=== PATIENT | female | born 1965 | race African-American/Black ===

== ENCOUNTER 2017-12-10 07:45 | Day surgery (SDC) | payer OTHER ==
[2017-11-21 11:42] VITALS: BMI 48.0
[2017-12-10] MEDS ORDERED: MIDAZOLAM HCL 2 MG/2 ML SINGLE DOSE VIAL ONE ×2 (09:37)
[2017-12-10] MEDS ORDERED: PROPOFOL 20 ML ONE (09:58)
--- NOTE | 2017-12-10 10:34 | OP ---
Operative Note - Note: Operative Date: 12/10/17 Pre-Operative Diagnosis: Left Kidney stones Operation: Left ESWL Findings: 5 & 3 mm mid pole left kidney stone Post-Operative Diagnosis: Same as Pre-op Surgeon: Daryl Tafoya
[2017-12-10 11:11] VITALS: TEMP 98.4
[2017-12-10 11:28] VITALS: PULSE 88
[2017-12-10 12:54] VITALS: BP 140/90
--- NOTE | 2017-12-10 19:53 | OP ---
DATE OF OPERATION: 12/10/2017 PREOPERATIVE DIAGNOSIS: Left renal stones. POSTOPERATIVE DIAGNOSIS: Left renal stones. PROCEDURE: Left extracorporeal shock wave lithotripsy. ATTENDING: Roseanna Chester MD ANESTHESIA: Fractional. DESCRIPTION OF OPERATION: The patient was brought in the operating room, placed in supine position on the operating room table. Ultrasonography and fluoroscopy were performed. Two stones in the left mid-pole were identified. One measured 5 mm, and the other measured 3 mm. Fractional anesthesia and preoperative antibiotics were then administered. At this point, 2500 impulses at 20 joules of power were administered to the 5-mm stone with excellent fragmentation noted. There were no complications noted. The patient tolerated the procedure very well. ROSEANNA CHESTER M.D. [id number]
== END 2017-12-10 12:54 | disposition home or self-care (01) ==
LOC: JASU-SURG 07:45
PROVIDERS: ATTEND Urology
PROC: 0TF4XZZ Fragmentation in Left Kidney Pelvis, External Approach (ICD-10-PCS; principal; 2017-12-10 09:30)
DX: N20.0 Calculus of kidney (principal)
CPT/HCPCS: 94760

== ENCOUNTER 2019-08-15 11:59 | Day surgery (SDC) | payer OTHER ==
[2019-08-13 14:41] VITALS: BMI 51.7
[2019-08-15] MEDS ORDERED: LIDOCAINE HCL 1%, 10 MG/ML (20ML VIAL) NR ONE (15:23)
[2019-08-15] MEDS ORDERED: IOHEXOL 180 MG/1 ML ML IJ ONE (15:23)
[2019-08-15] MEDS ORDERED: BUPIVACAINE HCL/PF 0.5% (5 MG/ML) 30 ML VIAL IJ ONE (15:23)
[2019-08-15] MEDS ORDERED: LIDOCAINE HCL/PF 1% SDV 5ML VIAL ONE (15:34)
[2019-08-15] MEDS ORDERED: MIDAZOLAM HCL 2 MG/2 ML SINGLE DOSE VIAL ONE (15:35)
[2019-08-15 18:38] VITALS: BP 140/72; PULSE 91; TEMP 98
== END 2019-08-15 17:30 | disposition home or self-care (01) ==
LOC: JASU-SURG 11:59
PROVIDERS: ATTEND Pain Medicine Pain Medicine
PROC: 3E0R33Z Introduction of Anti-inflammatory into Spinal Canal, Percutaneous Approach (ICD-10-PCS; 2019-08-15)
PROC: 3E0R3BZ Introduction of Anesthetic Agent into Spinal Canal, Percutaneous Approach (ICD-10-PCS; principal; 2019-08-15 15:00)
DX: M54.16 Radiculopathy, lumbar region (principal); M54.5 Low back pain

== ENCOUNTER 2024-07-15 04:56 | Inpatient (IN) | payer OTHER ==
[2024-07-15] MEDS ORDERED: ALBUTEROL SO4 2.5/IPRATROPIUM 0.5 INH SOL 3 ML VIAL.NEB. NEB ONE (05:20)
[2024-07-15] MEDS ORDERED: LEVALBUTEROL HCL 0.63 MG/3 ML VIAL.NEB. IH ONE (05:24)
[2024-07-15] MEDS: ALBUTEROL SO4 2.5/IPRATROPIUM 0.5 INH SOL 3 ML VIAL.NEB. NEB SCH (05:30)
[2024-07-15] MEDS ORDERED: DEXAMETHASONE SOD PHOSPHATE 10 MG/1 ML VIAL ONE (05:42)
[2024-07-15 06:27] LABS: VENOUS BASE EXCESS 5.2 mmol/L (-2-2); VENOUS O2 SATURATION 20.4 % (70-80); VENOUS PH 7.274 (7.310-7.410)
[2024-07-15] MEDS ORDERED: LABETALOL HCL 20 MG/4 ML VIAL ONE (06:31)
[2024-07-15 06:39] LABS: VENOUS PCO2 78.4 mmHg (38-52)
[2024-07-15 06:44] LABS: INR 1.08 (0.83-1.09); PROTHROMBIN TIME (PATIENT) 12.2 SEC (9.7-13.0)
[2024-07-15 06:46] LABS: ACTIVATED PTT 35.2 SECONDS (25.2-36.5)
[2024-07-15 06:48] LABS: POTASSIUM 4.7 mmol/L (3.5-5.1)
[2024-07-15 06:50] LABS: ALBUMIN 3.6 g/dl (3.4-5.0); BLOOD UREA NITROGEN 15.7 mg/dL (7-18); CALCIUM 10.1 mg/dL (8.5-10.1)
[2024-07-15 06:53] LABS: CREATININE 0.9 mg/dL (0.55-1.3)
[2024-07-15 06:55] LABS: BILIRUBIN,TOTAL 0.4 mg/dL (0.2-1); TOT PROT 8.7 g/dl (6.4-8.2)
[2024-07-15 06:58] LABS: N-TERMINAL BNP 153.5 pg/ml (5-125)
[2024-07-15] MEDS: DEXAMETHASONE SOD PHOSPHATE 10 MG/1 ML VIAL IM ONE (06:58)
[2024-07-15] MEDS: LABETALOL HCL 20 MG/4 ML VIAL IVPUSH ONE (06:59)
[2024-07-15] MEDS: LEVALBUTEROL HCL 0.63 MG/3 ML VIAL.NEB. IH ONE (06:59)
[2024-07-15 07:00] LABS: HEMATOCRIT 50.8 % (32.4-45.2); HEMOGLOBIN 15.5 GM/dL (10.7-15.3); MCH 26.4 pg (25.7-33.7); MCHC 30.4 g/dl (32.0-36.0); MEAN CELL VOLUME 86.6 fl (80-96); MEAN PLT VOLUME 10.7 fl (7.5-11.1); PLATELET COUNT 159 10^3/uL (134-434); RBC 5.86 M/mm3 (3.60-5.2); RDW 16.8 % (11.6-15.6); WHITE BLOOD COUNT 15.1 K/mm3 (4.0-10.0)
[2024-07-15 07:03] LABS: LACTIC ACID 2.4 mmol/L (0.4-2.0)
[2024-07-15] MEDS ORDERED: dilTIAZem HCL 125 MG/25 ML - 25 ML VIAL ONE ×2 (07:12→07:27)
[2024-07-15] MEDS: dilTIAZem HCL 50 MG/10 ML - 10 ML VIAL IVPUSH ONE ×3 (07:19→07:38)
[2024-07-15] MEDS ORDERED: LEVALBUTEROL HCL 0.63 MG/3 ML VIAL.NEB. IH PRN ×2 (07:22→12:50)
[2024-07-15] MEDS ORDERED: MORPHINE SULFATE 2 MG/ML SYRINGE ONE (07:26)
[2024-07-15] MEDS ORDERED: morphine SULFATE 4 MG/ML VIAL ONE (07:26)
[2024-07-15] MEDS: morphine CARPU-JECT 4 MG/1 ML DISP.SYRIN IVPUSH ONE ×2 (07:38→08:53)
[2024-07-15] MEDS: methylPREDNISolone NA SUCC 125 MG/2 ML VIAL IVPB ONE (07:39)
[2024-07-15] MEDS ORDERED: IPRATROPIUM BR 0.02% 0.5 MG/2.5 ML VIAL.NEB. NEB ONE (07:40)
[2024-07-15] MEDS: IPRATROPIUM BR 0.02% 0.5 MG/2.5 ML VIAL.NEB. NEB ONE (07:40)
[2024-07-15] MEDS ORDERED: LORazepam 2 MG/ML SDV VIAL ONE ×2 (08:08→09:40)
[2024-07-15] MEDS ORDERED: FUROSEMIDE 40 MG/4 ML INJECTABLE VIAL ONE ×2 (08:09→20:51)
[2024-07-15] MEDS: LORazepam 2 MG/ML SDV VIAL IVPUSH ONE ×2 (08:12→09:44)
[2024-07-15] MEDS: FUROSEMIDE 40 MG/4 ML INJECTABLE VIAL IVPUSH ONE ×2 (08:12→20:55)
[2024-07-15] MEDS ORDERED: LIDOCAINE 5% TOPICAL PATCH ONE (08:59)
[2024-07-15] MEDS ORDERED: KETOROLAC TROMETHAMINE 15 MG/ML VIAL ONE (09:00)
[2024-07-15] MEDS: KETOROLAC TROMETHAMINE 15 MG/ML VIAL IVPUSH ONE (09:27)
[2024-07-15] MEDS: LIDOCAINE 5% TOPICAL PATCH TP ONE (09:29)
[2024-07-15 09:40] LABS: ANISOCYTOSIS 0; HELMET CELLS 0; HOWELL-JOLLY BODIES 0; MACROCYTOSIS 0; OVALOCYTE 0; ROULEAU 0; SICKELED CELLS 0; TARGET CELLS 0; TEAR DROP CELLS 0; TOXIC GRANULATION 0
[2024-07-15] MEDS: MUPIROCIN 2% TOPICAL OINTMENT FOR DECOLONIZATION NS SCH (11:00)
[2024-07-15] MEDS: AMIODARONE IN DEXTROSE,ISO-OSM 150 MG/100 ML BAG IVPB SCH (12:20)
[2024-07-15] MEDS: AMIODARONE IN DEXTROSE,ISO-OSM 360 MG/200 ML BAG IV SCH (13:25)
[2024-07-15] MEDS: METHIMAZOLE 5 MG TABLET PO ONE (13:30)
[2024-07-15] MEDS ORDERED: ACETAMINOPHEN 325 MG TABLET (FP) PO PRN (13:45)
[2024-07-15] MEDS: LOSARTAN POTASSIUM 50 MG TABLET PO ONE (14:21)
[2024-07-15] MEDS: OSELTAMIVIR PHOSPHATE 75 MG CAPSULE PO SCH (14:21)
[2024-07-15] MEDS: morphine SULFATE 4 MG/ML VIAL IVPUSH ONE (14:25)
[2024-07-15] MEDS: FUROSEMIDE 40 MG/4 ML INJECTABLE VIAL IVPUSH SCH (14:27)
[2024-07-15] MEDS ORDERED: METOPROLOL TARTRATE 5 MG/5 ML VIAL ONE (14:58)
[2024-07-15] MEDS: oxyCODONE HCL 5 MG TABLET PO PRN (15:55)
[2024-07-15] MEDS: METOPROLOL TARTRATE 5 MG/5 ML VIAL IVPUSH ONE (16:01)
[2024-07-15] MEDS: DEXMEDETOMIDINE PREMIX 400 MCG/100 ML BAG IVPB SCH (16:13)
[2024-07-15] MEDS: NICOTINE 21 MG/24 HOURS TOPICAL PATCH TD SCH (20:08)
[2024-07-15] MEDS: APIXABAN 5 MG TABLET PO SCH (21:13)
[2024-07-15] MEDS: BUDESONIDE/FORMETEROL FUMARATE 160/4.5 mcg INHALER IH SCH (21:21)
[2024-07-15] MEDS: ZIPRASIDONE PO SCH (21:21)
[2024-07-15] MEDS ORDERED: ZIPRASIDONE 80 MG CAPSULE PO SCH (22:00)
[2024-07-15] MEDS: CHLORHEXIDINE GLUCONATE 4% CLEANSER FOR DECOLONIZATION TP SCH (23:12)
[2024-07-16] MEDS ORDERED: morphine SULFATE 4 MG/ML VIAL ONE (01:47)
[2024-07-16] MEDS: morphine SULFATE 4 MG/ML VIAL IVPUSH ONE ×2 (01:58→19:55)
[2024-07-16] MEDS: methylPREDNISolone NA SUCC 40 MG/1 ML VIAL IVPUSH SCH (05:35)
[2024-07-16] MEDS ORDERED: dilTIAZem HCL 25 MG/5 ML - 5 ML VIAL ONE (07:50)
[2024-07-16] MEDS ORDERED: LOSARTAN 50MG/HCTZ 12.5MG 1 TAB PO SCH (10:00)
[2024-07-16] MEDS ORDERED: ENOXAPARIN NA (PORCINE) 40 MG/0.4 ML DISP.SYRIN SQ SCH (10:00)
[2024-07-16] MEDS: METHIMAZOLE 5 MG TABLET PO SCH (11:01)
[2024-07-16 12:16] LABS: ARTERIAL BLD GAS O2 SATURATION 99.3 % (95-98); ARTERIAL BLOOD GAS BASE EXCESS 0.9 mmol/L (-2-2); ARTERIAL BLOOD GAS PO2 229.1 mmHg (80-100); ARTERIAL BLOOD GAS pH 7.241 (7.350-7.450)
[2024-07-16 12:17] LABS: ALLENS TEST POSITIVE
[2024-07-16 12:18] LABS: VENT MODE IPAP 15; VENT RATE 16
[2024-07-16] MEDS: LOSARTAN POTASSIUM 50 MG TABLET PO SCH (13:10)
[2024-07-16 13:21] LABS: HEMATOCRIT 46.4 % (32.4-45.2); HEMOGLOBIN 13.7 GM/dL (10.7-15.3); MCH 26.3 pg (25.7-33.7); MCHC 29.4 g/dl (32.0-36.0); MEAN CELL VOLUME 89.5 fl (80-96); MEAN PLT VOLUME 10.3 fl (7.5-11.1); PLATELET COUNT 134 10^3/uL (134-434); RBC 5.19 M/mm3 (3.60-5.2); RDW 16.6 % (11.6-15.6); WHITE BLOOD COUNT 14.9 K/mm3 (4.0-10.0)
[2024-07-16 13:54] LABS: POTASSIUM 5.6 mmol/L (3.5-5.1)
[2024-07-16 13:56] LABS: CALCIUM 8.6 mg/dL (8.5-10.1)
[2024-07-16 13:57] LABS: BLOOD UREA NITROGEN 37.6 mg/dL (7-18); MAGNESIUM 2.1 mg/dL (1.8-2.4)
[2024-07-16 14:00] LABS: CREATININE 2.3 mg/dL (0.55-1.3); PHOSPHOROUS 6.5 mg/dL (2.5-4.9)
[2024-07-16 14:01] LABS: BILIRUBIN,TOTAL 0.4 mg/dL (0.2-1); TOT PROT 6.8 g/dl (6.4-8.2)
[2024-07-16 14:08] LABS: ALBUMIN 2.7 g/dl (3.4-5.0)
[2024-07-16] MEDS: ENOXAPARIN NA (PORCINE) 60 MG/0.6 ML DISP.SYRIN SQ SCH (14:27)
[2024-07-16] MEDS: LEVALBUTEROL HCL 0.63 MG/3 ML VIAL.NEB. IH SCH (14:29)
[2024-07-16] MEDS: DEXTROSE 50%-WATER 25 GM/50 ML DISP.SYRIN IVPUSH ONE (15:55)
[2024-07-16] MEDS: INSULIN REGULAR HUMAN 100 UNITS/ML *VIAL IVPUSH ONE (15:55)
[2024-07-16] MEDS: CALCIUM GLUCONATE 10% - 1,000 MG/10 ML VIAL IVPUSH ONE (15:55)
[2024-07-16] MEDS: SODIUM CHLORIDE 1,000 ML IV SCH (17:53)
[2024-07-16] MEDS: ACETAMINOPHEN 1000 MG/100 ML BAG IVPB ONE (19:56)
[2024-07-16] MEDS: AMIODARONE IN DEXTROSE,ISO-OSM 360 MG/200 ML BAG IV SCH (22:22)
[2024-07-16 22:53] LABS: ARTERIAL BLD GAS O2 SATURATION 96.7 % (95-98); ARTERIAL BLOOD GAS BASE EXCESS -1.5 mmol/L (-2-2); ARTERIAL BLOOD GAS PO2 111.6 mmHg (80-100)
[2024-07-16 22:55] LABS: ARTERIAL BLOOD GAS pH 7.175 (7.350-7.450)
[2024-07-17] MEDS ORDERED: PHENYLEPHRINE HCL 10 MG/1 ML SINGLE DOSE VIAL ONE (00:31)
[2024-07-17] MEDS: PHENYLEPHRINE NS PREMIX 50,000 MCG/500 ML BAG CVP SCH (00:39)
[2024-07-17 01:11] LABS: ARTERIAL BLD GAS O2 SATURATION 92.4 % (95-98); ARTERIAL BLOOD GAS PO2 85.2 mmHg (80-100)
[2024-07-17 01:13] LABS: ARTERIAL BLOOD GAS pH 7.129 (7.350-7.450)
[2024-07-17 06:17] LABS: ARTERIAL BLD GAS O2 SATURATION 98.3 % (95-98); ARTERIAL BLOOD GAS BASE EXCESS -3.9 mmol/L (-2-2); ARTERIAL BLOOD GAS PO2 145.5 mmHg (80-100)
[2024-07-17 06:26] LABS: ARTERIAL BLOOD GAS pH 7.196 (7.350-7.450)
[2024-07-17 06:27] LABS: VENT MODE S/T; VENT RATE 20
[2024-07-17] MEDS: MIDAZOLAM HCL 5 MG/1 ML Single Dose Vial IVPUSH ONE (08:25)
[2024-07-17] MEDS ORDERED: MIDAZOLAM HCL 5 MG/1 ML Single Dose Vial ONE (08:26)
[2024-07-17] MEDS ORDERED: morphine SULFATE 4 MG/ML VIAL ONE (11:15)
[2024-07-17] MEDS: morphine SULFATE 4 MG/ML VIAL IVPUSH ONE (12:45)
[2024-07-17 15:28] VITALS: BMI 59.3
[2024-07-17 16:13] LABS: ARTERIAL BLD GAS O2 SATURATION 94.4 % (95-98); ARTERIAL BLOOD GAS BASE EXCESS -3.9 mmol/L (-2-2); ARTERIAL BLOOD GAS PO2 88.7 mmHg (80-100)
[2024-07-17 16:19] LABS: VENT MODE S/T; VENT RATE 24
[2024-07-17 16:20] LABS: ARTERIAL BLOOD GAS pH 7.196 (7.350-7.450)
[2024-07-17 17:33] LABS: HEMATOCRIT 45.3 % (32.4-45.2); HEMOGLOBIN 13.8 GM/dL (10.7-15.3); MCH 26.7 pg (25.7-33.7); MCHC 30.5 g/dl (32.0-36.0); MEAN CELL VOLUME 87.3 fl (80-96); MEAN PLT VOLUME 10.6 fl (7.5-11.1); PLATELET COUNT 121 10^3/uL (134-434); RBC 5.19 M/mm3 (3.60-5.2); RDW 16.2 % (11.6-15.6); WHITE BLOOD COUNT 13.4 K/mm3 (4.0-10.0)
[2024-07-17 17:54] LABS: POTASSIUM 5.8 mmol/L (3.5-5.1)
[2024-07-17 17:57] LABS: CALCIUM 7.8 mg/dL (8.5-10.1)
[2024-07-17 17:58] LABS: ALBUMIN 2.3 g/dl (3.4-5.0); MAGNESIUM 2.2 mg/dL (1.8-2.4)
[2024-07-17 18:01] LABS: CREATININE 4.1 mg/dL (0.55-1.3); PHOSPHOROUS 8.2 mg/dL (2.5-4.9)
[2024-07-17 18:02] LABS: BILIRUBIN,TOTAL 0.4 mg/dL (0.2-1)
[2024-07-17 18:04] LABS: BLOOD UREA NITROGEN 78.7 mg/dL (7-18)
[2024-07-17] MEDS: SODIUM ZIRCONIUM CYCLOSILICATE (LOKELMA) 5 GM PACKET PO ONE (18:40)
[2024-07-17] MEDS ORDERED: DEXTROSE 50%-WATER 25 GM/50 ML DISP.SYRIN ONE (18:48)
[2024-07-17] MEDS: INSULIN REGULAR HUMAN 100 UNITS/ML *VIAL IVPUSH ONE (19:10)
[2024-07-17] MEDS: CALCIUM GLUCONATE 10% - 1,000 MG/10 ML VIAL IVPUSH ONE (19:10)
[2024-07-17] MEDS: DEXTROSE 50%-WATER - 25 GM/50 ML VIAL IVPUSH ONE (19:32)
[2024-07-17] MEDS ORDERED: LIDOCAINE HCL 1%, 10 MG/ML (20ML VIAL) ONE (20:56)
[2024-07-17] MEDS: DEXMEDETOMIDINE IN 0.9 % NACL 200 MCG/50 ML EACH IVPB SCH (22:00)
[2024-07-17 23:45] LABS: ARTERIAL BLD GAS O2 SATURATION 95.3 % (95-98); ARTERIAL BLOOD GAS BASE EXCESS -3.6 mmol/L (-2-2); ARTERIAL BLOOD GAS PO2 91.4 mmHg (80-100); ARTERIAL BLOOD GAS pH 7.224 (7.350-7.450)
[2024-07-18] MEDS: ENOXAPARIN NA (PORCINE) 60 MG/0.6 ML DISP.SYRIN SQ SCH (00:11)
[2024-07-18] MEDS: morphine SULFATE 4 MG/ML VIAL IVPUSH PRN (03:29)
[2024-07-18] MEDS ORDERED: RAPID SEQUENCE INTUBATION KIT NR ONE ×2 (05:42→09:25)
[2024-07-18] MEDS: PHENobarbital SODIUM 65 MG/1 ML VIAL IVPUSH ONE (06:37)
[2024-07-18 06:58] LABS: HEMATOCRIT 45.9 % (32.4-45.2); HEMOGLOBIN 14.5 GM/dL (10.7-15.3); MCHC 31.6 g/dl (32.0-36.0); MEAN CELL VOLUME 85.4 fl (80-96); MEAN PLT VOLUME 10.7 fl (7.5-11.1); PLATELET COUNT 141 10^3/uL (134-434); RBC 5.38 M/mm3 (3.60-5.2); RDW 16.4 % (11.6-15.6); WHITE BLOOD COUNT 26.1 K/mm3 (4.0-10.0)
[2024-07-18 07:14] LABS: POTASSIUM 5.8 mmol/L (3.5-5.1)
[2024-07-18 07:17] LABS: ALBUMIN 2.5 g/dl (3.4-5.0); BLOOD UREA NITROGEN 92.6 mg/dL (7-18); CALCIUM 8.3 mg/dL (8.5-10.1)
[2024-07-18 07:18] LABS: MAGNESIUM 2.3 mg/dL (1.8-2.4)
[2024-07-18 07:20] LABS: CREATININE 4.5 mg/dL (0.55-1.3); PHOSPHOROUS 8.1 mg/dL (2.5-4.9)
[2024-07-18 07:21] LABS: BILIRUBIN,TOTAL 0.7 mg/dL (0.2-1); TOT PROT 6.5 g/dl (6.4-8.2)
[2024-07-18 07:26] LABS: ARTERIAL BLD GAS O2 SATURATION 91.8 % (95-98); ARTERIAL BLOOD GAS BASE EXCESS -4.9 mmol/L (-2-2); ARTERIAL BLOOD GAS PO2 75.3 mmHg (80-100); ARTERIAL BLOOD GAS pH 7.211 (7.350-7.450)
[2024-07-18 07:29] LABS: VENT MODE S/T; VENT RATE 24
[2024-07-18] MEDS: ACETAMINOPHEN 1000 MG/100 ML BAG IVPB PRN (09:10)
[2024-07-18] MEDS ORDERED: PROPOFOL 1,000,000 MCG/100 ML VIAL ONE (09:25)
[2024-07-18] MEDS ORDERED: MIDAZOLAM HCL 5 MG/1 ML Single Dose Vial ONE (09:36)
[2024-07-18] MEDS: KETAMINE HCL 200 MG/20 ML VIAL IVPUSH ONE (12:19)
[2024-07-18] MEDS: DEXMEDETOMIDINE HCL 400 MCG in SODIUM CHLORIDE 96 ML IVPB SCH (12:20)
[2024-07-18] MEDS: NOREPINEPHRINE 0.9 % NACL 8 MG/250 ML BAG IVPB SCH (12:21)
[2024-07-18 12:32] LABS: HEMATOCRIT 47.7 % (32.4-45.2); HEMOGLOBIN 14.8 GM/dL (10.7-15.3); MCH 26.6 pg (25.7-33.7); MCHC 30.9 g/dl (32.0-36.0); PLATELET COUNT 161 10^3/uL (134-434); RBC 5.55 M/mm3 (3.60-5.2); RDW 17.3 % (11.6-15.6)
[2024-07-18 12:35] LABS: WHITE BLOOD COUNT 31.7 K/mm3 (4.0-10.0)
[2024-07-18 12:47] LABS: CHLORIDE 100 mmol/L (98-107); POTASSIUM 5.5 mmol/L (3.5-5.1); SODIUM 137 mmol/L (136-145)
[2024-07-18 12:49] LABS: ALBUMIN 2.6 g/dl (3.4-5.0); CALCIUM 8.2 mg/dL (8.5-10.1)
[2024-07-18 12:50] LABS: ANION GAP 14 mmol/L (4-13); BLOOD UREA NITROGEN 97.6 mg/dL (7-18); CO2 23 mmol/L (21-32); GLUCOSE,RANDOM 268 mg/dL (74-106); MAGNESIUM 2.6 mg/dL (1.8-2.4)
[2024-07-18 12:53] LABS: CREATININE 5.3 mg/dL (0.55-1.3); SGOT/AST 277 U/L (15-37); SGPT/ALT 169 U/L (13-61)
[2024-07-18 12:54] LABS: BILIRUBIN,TOTAL 1.1 mg/dL (0.2-1); TOT PROT 6.7 g/dl (6.4-8.2)
[2024-07-18 12:55] LABS: ALK PHOS 217 U/L (45-117)
[2024-07-18 12:58] LABS: ANISOCYTOSIS 0; MACROCYTOSIS 0
[2024-07-18 13:01] LABS: ARTERIAL BLD GAS O2 SATURATION 76.6 % (95-98); ARTERIAL BLOOD GAS BASE EXCESS -7.5 mmol/L (-2-2); ARTERIAL BLOOD GAS PO2 54.2 mmHg (80-100); LACTIC ACID 3.9 mmol/L (0.4-2.0)
[2024-07-18 13:07] LABS: ALLENS TEST POSITIVE
[2024-07-18 13:08] LABS: VENT MODE A/C; VENT RATE 450
[2024-07-18 14:39] LABS: PHOSPHOROUS 8.7 mg/dL (2.5-4.9)
[2024-07-18] MEDS ORDERED: PIPERACILLIN/TAZOB 2.25 GM 2.25 GM in DEXTROSE 5%-WATER - 50 ML IVPB SCH (15:30)
[2024-07-18] MEDS: ENOXAPARIN NA (PORCINE) 60 MG/0.6 ML DISP.SYRIN SQ ONE (16:16)
[2024-07-18] MEDS: PANTOPRAZOLE SODIUM 40 MG VIAL IVPUSH SCH (16:29)
[2024-07-18] MEDS: PROPOFOL 1,000,000 MCG/100 ML VIAL IVPB SCH (16:30)
[2024-07-18] MEDS: INSULIN ASPART SLIDING SCALE (NOVOLOG) 1 VIAL SQ SCH (16:30)
[2024-07-18] MEDS ORDERED: PIPERACILLIN/TAZOB 2.25 GM 2.25 GM/50 ML BAG IVPB SCH (17:00)
[2024-07-18] MEDS: PIPERACILLIN/TAZOB 2.25 GM 2.25 GM/50 ML BAG IVPB SCH (17:44)
[2024-07-18] MEDS ORDERED: INSULIN ASPART SLIDING SCALE (NOVOLOG) 1 VIAL SQ ONE (17:47)
[2024-07-18] MEDS: AMIODARONE HCL 200 MG TABLET NGT SCH (19:41)
[2024-07-18] MEDS: DEXTROSE IVPB SCH (19:42)
[2024-07-18] MEDS: AMIODARONE IVPB SCH (19:42)
[2024-07-18] MEDS: AMIODARONE HCL IVPB ONE (19:50)
[2024-07-18] MEDS: DEXTROSE 5% IVPB ONE (19:50)
[2024-07-18] MEDS: WATER IVPB ONE (19:50)
[2024-07-18] MEDS: FENTANYL NS IVPB 500 MCG/100 ML BAG IVPB SCH (20:34)
[2024-07-18 21:16] LABS: ARTERIAL BLD GAS O2 SATURATION 89.9 % (95-98); ARTERIAL BLOOD GAS BASE EXCESS -3.6 mmol/L (-2-2); ARTERIAL BLOOD GAS PO2 69.2 mmHg (80-100); ARTERIAL BLOOD GAS pH 7.221 (7.350-7.450)
[2024-07-18 21:45] LABS: CHLORIDE 101 mmol/L (98-107); POTASSIUM 5.3 mmol/L (3.5-5.1); SODIUM 138 mmol/L (136-145)
[2024-07-18 21:47] LABS: ALBUMIN 2.1 g/dl (3.4-5.0); ANION GAP 12 mmol/L (4-13); CALCIUM 7.6 mg/dL (8.5-10.1); CO2 26 mmol/L (21-32); GLUCOSE,RANDOM 283 mg/dL (74-106); MAGNESIUM 2.3 mg/dL (1.8-2.4)
[2024-07-18 21:50] LABS: SGPT/ALT 125 U/L (13-61)
[2024-07-18 21:51] LABS: CREATININE 5.5 mg/dL (0.55-1.3); PHOSPHOROUS 7.5 mg/dL (2.5-4.9); SGOT/AST 180 U/L (15-37)
[2024-07-18 21:52] LABS: BILIRUBIN,TOTAL 1.1 mg/dL (0.2-1); TOT PROT 5.5 g/dl (6.4-8.2)
[2024-07-18] MEDS: ENOXAPARIN NA (PORCINE) 120 MG/0.8 ML DISP.SYRIN SQ SCH (21:52)
[2024-07-18 21:54] LABS: ALK PHOS 159 U/L (45-117); BLOOD UREA NITROGEN 105.6 mg/dL (7-18)
[2024-07-18 22:27] LABS: LACTIC ACID 2.1 mmol/L (0.4-2.0)
[2024-07-18] MEDS: AMIODARONE HCL 200 MG TABLET PO SCH (22:31)
[2024-07-18] MEDS: HEPARIN NA (PORCINE) 5,000 UNITS/ML 1ML VIAL SQ SCH (22:31)
[2024-07-18] MEDS: VASopressin 40 UNITS/100 ML BAG IV SCH (22:32)
[2024-07-18] MEDS ORDERED: VASopressin 20 UNITS/ML VIAL IV ONE (22:32)
[2024-07-18] MEDS ORDERED: METOLAZONE 2.5 MG TABLET (FP) NGT ONE (23:47)
[2024-07-19] MEDS: FUROSEMIDE INJECTION 100 MG in DEXTROSE 5%-WATER - 90 ML IVPB SCH (00:17)
[2024-07-19] MEDS: FUROSEMIDE 100 MG/10 ML INJECTABLE VIAL IVPB ONE (00:17)
[2024-07-19] MEDS: INSULIN ASPART SLIDING SCALE (NOVOLOG) 1 VIAL SQ SCH (00:17)
[2024-07-19] MEDS: METOLAZONE 5 MG TABLET NR ONE (00:46)
[2024-07-19 07:31] LABS: ARTERIAL BLD GAS O2 SATURATION 88.3 % (95-98); ARTERIAL BLOOD GAS BASE EXCESS -6.1 mmol/L (-2-2); ARTERIAL BLOOD GAS PO2 67.1 mmHg (80-100)
[2024-07-19 07:37] LABS: ARTERIAL BLOOD GAS pH 7.192 (7.350-7.450)
[2024-07-19 07:43] LABS: HEMOGLOBIN 13.4 GM/dL (10.7-15.3); MCH 26.5 pg (25.7-33.7); MEAN CELL VOLUME 85.5 fl (80-96); MEAN PLT VOLUME 11.4 fl (7.5-11.1); PLATELET COUNT 97 10^3/uL (134-434); RBC 5.03 M/mm3 (3.60-5.2)
[2024-07-19 07:55] LABS: WHITE BLOOD COUNT 36.5 K/mm3 (4.0-10.0)
[2024-07-19 08:20] LABS: LACTIC ACID 2.5 mmol/L (0.4-2.0)
[2024-07-19 08:25] LABS: CHLORIDE 100 mmol/L (98-107); POTASSIUM 5.5 mmol/L (3.5-5.1); SODIUM 137 mmol/L (136-145)
[2024-07-19 08:37] LABS: ALBUMIN 1.9 g/dl (3.4-5.0); CALCIUM 7.6 mg/dL (8.5-10.1)
[2024-07-19 08:38] LABS: ANION GAP 13 mmol/L (4-13); CO2 24 mmol/L (21-32); GLUCOSE,RANDOM 278 mg/dL (74-106); MAGNESIUM 2.3 mg/dL (1.8-2.4)
[2024-07-19 08:39] LABS: BLOOD UREA NITROGEN 115.4 mg/dL (7-18); SGOT/AST 140 U/L (15-37); SGPT/ALT 110 U/L (13-61)
[2024-07-19 08:40] LABS: CREATININE 5.9 mg/dL (0.55-1.3)
[2024-07-19 08:41] LABS: BILIRUBIN,TOTAL 1.2 mg/dL (0.2-1); PHOSPHOROUS 7.7 mg/dL (2.5-4.9); TOT PROT 5.4 g/dl (6.4-8.2)
[2024-07-19 08:42] LABS: ALK PHOS 133 U/L (45-117)
[2024-07-19 08:58] LABS: ANISOCYTOSIS 2+; MACROCYTOSIS 1+
[2024-07-19] MEDS: SODIUM ZIRCONIUM CYCLOSILICATE (LOKELMA) 5 GM PACKET PO SCH (10:03)
[2024-07-19] MEDS: OSELTAMIVIR PHOSPHATE 30 MG CAPSULE PO SCH (10:05)
[2024-07-19] MEDS: SEVELAMER CARBONATE 0.8 GM POWDER PACKET NGT SCH (10:06)
[2024-07-19] MEDS ORDERED: INSULIN ASPART SLIDING SCALE (NOVOLOG) 1 VIAL SQ ONE (12:42)
[2024-07-19] MEDS: PIPERACILLIN/TAZOB 2.25 GM 2.25 GM in DEXTROSE 5%-WATER - 50 ML IVPB SCH (14:22)
[2024-07-19] MEDS: ROCURONIUM BROMIDE 50 MG/5 ML VIAL IV ONE ×2 (15:16→17:32)
[2024-07-19] MEDS: SODIUM CHLORIDE 500 ML IV STA (15:16)
[2024-07-19] MEDS ORDERED: MINERAL OIL/PETROLATUM,WHITE 3.5 GM TUBE OU PRN (15:45)
[2024-07-19] MEDS ORDERED: AMIODARONE IN DEXTROSE,ISO-OSM 150 MG/100 ML BAG ONE (16:58)
[2024-07-19] MEDS ORDERED: ROCURONIUM BROMIDE 50 MG/5 ML VIAL ONE (17:01)
[2024-07-19] MEDS: ROCURONIUM BROMIDE 500 MG/300 ML BAG IVPB SCH (17:28)
[2024-07-19] MEDS: AMIODARONE IN DEXTROSE,ISO-OSM 150 MG/100 ML BAG IVPB ONE (17:32)
[2024-07-19 17:38] LABS: ARTERIAL BLD GAS O2 SATURATION 77.6 % (95-98); ARTERIAL BLOOD GAS BASE EXCESS -7.7 mmol/L (-2-2); ARTERIAL BLOOD GAS PO2 54.9 mmHg (80-100)
[2024-07-19 17:41] LABS: VENT MODE A/C; VENT RATE 24
[2024-07-19 17:43] LABS: ARTERIAL BLOOD GAS pH 7.136 (7.350-7.450)
[2024-07-19] MEDS ORDERED: HEPARIN NA (PORCINE) 5,000 UNITS/ML 1ML VIAL IVPUSH PRN ×2 (20:15)
[2024-07-19] MEDS: FENTANYL NS IVPB 500 MCG/100 ML BAG IVPB SCH (20:42)
[2024-07-19] MEDS: HYDROCORTISONE SOD SUCCINATE 100 MG/2 ML VIAL IVPUSH SCH (20:42)
[2024-07-19] MEDS: HEPARIN INFUSION - 25,000 UNITS/500 ML INFUS.BAG IVPB SCH (20:43)
[2024-07-19 20:53] LABS: ARTERIAL BLOOD GAS BASE EXCESS -6.1 mmol/L (-2-2); ARTERIAL BLOOD GAS PO2 62.2 mmHg (80-100); ARTERIAL BLOOD GAS pH 7.226 (7.350-7.450)
[2024-07-19 20:56] LABS: VENT MODE AC
[2024-07-19 20:57] LABS: VENT RATE 30
[2024-07-19 21:36] LABS: CHLORIDE 100 mmol/L (98-107); SODIUM 138 mmol/L (136-145)
[2024-07-19 21:37] LABS: CO2 23 mmol/L (21-32); GLUCOSE,RANDOM 294 mg/dL (74-106)
[2024-07-19 21:38] LABS: ALBUMIN 1.7 g/dl (3.4-5.0); ANION GAP 15 mmol/L (4-13); CALCIUM 7.2 mg/dL (8.5-10.1)
[2024-07-19 21:41] LABS: CREATININE 6.6 mg/dL (0.55-1.3); SGOT/AST 118 U/L (15-37); SGPT/ALT 101 U/L (13-61)
[2024-07-19 21:43] LABS: BILIRUBIN,TOTAL 1.1 mg/dL (0.2-1); TOT PROT 5.3 g/dl (6.4-8.2)
[2024-07-19 21:44] LABS: ALK PHOS 108 U/L (45-117)
[2024-07-19 21:50] LABS: BLOOD UREA NITROGEN 112.4 mg/dL (7-18)
[2024-07-19] MEDS: PIPERACILLIN/TAZOB 2.25 GM 2.25 GM/50 ML BAG IVPB SCH (21:58)
[2024-07-20 00:11] VITALS: BP 137/70; RESP 27; TEMP 98.8
[2024-07-20 01:23] VITALS: PULSE 97
[2024-07-21 21:07] LABS: ANTIGLOMERULAR BASEMENT MEN.AB <0.2 units (0.0-0.9)
[2024-07-22 16:09] LABS: C-ANCA <1:20 titer (Neg:<1:20)
== END 2024-07-20 02:06 | disposition short-term general hospital (02) | DRG 133 ==
LOC: JER 04:56 → JERBED 09:12 → JICU 10:38
PROVIDERS: ADMIT Internal Medicine; ATTEND Internal Medicine
PROC: 4A133B1 Monitoring of Arterial Pressure, Peripheral, Percutaneous Approach (ICD-10-PCS; principal; 2024-07-17)
PROC: 4A133J1 Monitoring of Arterial Pulse, Peripheral, Percutaneous Approach (ICD-10-PCS; 2024-07-17)
PROC: 05HM33Z Insertion of Infusion Device into Right Internal Jugular Vein, Percutaneous Approach (ICD-10-PCS; 2024-07-18)
PROC: B543ZZA Ultrasonography of Right Jugular Veins, Guidance (ICD-10-PCS; 2024-07-18)
PROC: 0BH17EZ Insertion of Endotracheal Airway into Trachea, Via Natural or Artificial Opening (ICD-10-PCS; 2024-07-18)
PROC: 5A1945Z Respiratory Ventilation, 24-96 Consecutive Hours (ICD-10-PCS; 2024-07-18)
PROC: 0W9B30Z Drainage of Left Pleural Cavity with Drainage Device, Percutaneous Approach (ICD-10-PCS; 2024-07-18)
PROC: 5A12012 Performance of Cardiac Output, Single, Manual (ICD-10-PCS; 2024-07-18)
DX: J96.01 Acute respiratory failure with hypoxia (principal); I11.0 Hypertensive heart disease with heart failure; E11.9 Type 2 diabetes mellitus without complications; I50.33 Acute on chronic diastolic (congestive) heart failure; J10.1 Influenza due to other identified influenza virus with other respiratory manifestations; E66.2 Morbid (severe) obesity with alveolar hypoventilation; Z68.44 Body mass index [BMI] 60.0-69.9, adult; I48.4 Atypical atrial flutter; J93.9 Pneumothorax, unspecified; J44.1 Chronic obstructive pulmonary disease with (acute) exacerbation; N17.9 Acute kidney failure, unspecified; L89.312 Pressure ulcer of right buttock, stage 2; J96.02 Acute respiratory failure with hypercapnia; C50.912 Malignant neoplasm of unspecified site of left female breast; Z96.651 Presence of right artificial knee joint; G47.33 Obstructive sleep apnea (adult) (pediatric); I48.91 Unspecified atrial fibrillation; E05.90 Thyrotoxicosis, unspecified without thyrotoxic crisis or storm; E87.5 Hyperkalemia; Z99.81 Dependence on supplemental oxygen
CPT/HCPCS: 0241U-QW; 31500; 36415; 36600; 71045-TC-FY; 76775-TC; 80053; 82803; 82962; 83516; 83520; 83605; 83735; 83880; 84100; 84439; 84443; 84484; 85025; 85027; 85610; 85730; 86038; 86160; 86225; 86256; 86850; 86900; 86901; 87040; 87070; 87086; 87186; 87205; 87481; 87635; 93005; 93010; 93306-TC; 94002; 94660; 99291; J0131; J0282; J1100; J1644; J3490